=== PATIENT | female | born 1950 ===

== ENCOUNTER → 2017-10-07 | Emergency (ER) | payer OTHER ==
[~2017-10-07] VITALS: Ht 175.3 cm; Wt 130.6 kg
[~2017-10-07] MED LIST: DOSTINEX0.5 MG; GLIPIZIDE2.5 MG/BO1; HYZAAR 100-121 UDTAB; IMODIUM A-D2 M2 PO; KETO10TA2 PO; PEPCID40 MG PO; SIMVASTATIN5 MG; ZOFRAN4 MG PO
== END | disposition home or self-care (01) ==
LOC: ER 11:18
DX: R42 Dizziness and giddiness (principal); M54.89 Other dorsalgia